=== PATIENT | male | born 1990 | race American Indian/Alaskan Native ===

== ENCOUNTER 2017-06-02 19:21 | Emergency (ER) | payer OTHER ==
[2017-06-02] MEDS ORDERED: MOTRIN PO ONE (20:19)
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
[2017-06-02] MEDS ORDERED: MOTRIN ONE (22:27)
[2017-06-02 22:44] VITALS: BP 149/104
== END 2017-06-02 22:44 | disposition home or self-care (01) ==
LOC: ED 19:21
DX: S13.4XXA Sprain of ligaments of cervical spine, initial encounter (principal); S09.90XA Unspecified injury of head, initial encounter; V89.2XXA Person injured in unspecified motor-vehicle accident, traffic, initial encounter; Y93.89 Activity, other specified; Y99.8 Other external cause status; Y92.410 Unspecified street and highway as the place of occurrence of the external cause
CPT/HCPCS: 70450; 72125; 99283